=== PATIENT | male | born 1940 | race Caucasian/White ===

== ENCOUNTER → 2016-07-26 | Outpatient (REF) | payer MEDICARE, OTHER ==
[2016-07-26 12:52] LABS: ALBUMIN/GLOBULIN RATIO 1.29 (1.00-1.93); ALKALINE PHOSPHATASE 66 U/L (45-117); ALT/SGPT 29 U/L (12-78); ANION GAP 7 MEQ/L (8-16); AST/SGOT 21 U/L (15-37); BILIRUBIN,TOTAL 0.9 MG/DL (0.2-1.0); BLOOD UREA NITROGEN 24 MG/DL (7-18); CALCIUM LEVEL 9.5 MG/DL (8.8-10.2); CARBON DIOXIDE LEVEL 34 MEQ/L (21-32); CHLORIDE LEVEL 98 MEQ/L (98-107); CHOLESTEROL LEVEL 232 MG/DL (<200); CREATININE FOR GFR 0.94 MG/DL (0.70-1.30); GLOMERULAR FILTRATION RATE > 60.0 (>42); GLUCOSE, FASTING 103 MG/DL (83-110); POTASSIUM SERUM 3.4 MEQ/L (3.5-5.1); SODIUM LEVEL 139 MEQ/L (136-145); TOTAL PROTEIN 7.1 GM/DL (6.4-8.2); TRIGLYCERIDES LEVEL 196 MG/DL (<150)
== END ==
LOC: M SFHCADAM 07:41
PROVIDERS: ATTEND Physician Assistant
DX: I10 Essential (primary) hypertension (principal); E78.2 Mixed hyperlipidemia; E55.9 Vitamin D deficiency, unspecified

== ENCOUNTER 2016-10-09 20:34 | Emergency (ER) | payer MEDICARE, OTHER ==
[~2016-10-09] VITALS: Ht 172.7 cm; Wt 70.5 kg
[2016-10-09] MEDS ORDERED: ASPI81TA85 PO (20:59)
[2016-10-09] MEDS ORDERED: CHLO125TA (20:59)
[2016-10-09] MEDS ORDERED: ASPI325T24 PO (20:59)
[2016-10-09] MEDS ORDERED: FELO5TAB (20:59)
[2016-10-09] MEDS ORDERED: POTA20TA6 (20:59)
[2016-10-10] MEDS ORDERED: KEFL500C17 PO (00:17)
[2016-10-10 00:34] VITALS: BP 157/87
== END 2016-10-10 00:35 | disposition home or self-care (01) ==
LOC: M ED 20:34
DX: S01.81XA Laceration without foreign body of other part of head, initial encounter (principal); S51.811A Laceration without foreign body of right forearm, initial encounter; W01.0XXA Fall on same level from slipping, tripping and stumbling without subsequent striking against object, initial encounter; Y92.018 Other place in single-family (private) house as the place of occurrence of the external cause; Y99.9 Unspecified external cause status; Y93.9 Activity, unspecified; I10 Essential (primary) hypertension; Z79.82 Long term (current) use of aspirin; Z79.899 Other long term (current) drug therapy

== ENCOUNTER → 2018-02-07 | Outpatient (CLI) | payer MEDICARE, OTHER | LOC: M RAD 06:52 | DX: N28.89 Other specified disorders of kidney and ureter (principal) | CPT/HCPCS: 76775 ==

== ENCOUNTER → 2018-02-11 | Outpatient (CLI) | payer MEDICARE, OTHER ==
[~2018-02-11] MED LIST: ASPI325T25 PO; ASPI81TA85 PO; CHLO125TA; FELO5TAB; KEFL500C17 PO; POTA20TA6
[2018-02-11 18:01] LABS: BLOOD UREA NITROGEN 28 MG/DL (7-18); CALCIUM LEVEL 9.6 MG/DL (8.8-10.2); CARBON DIOXIDE LEVEL 30 MEQ/L (21-32); CHLORIDE LEVEL 99 MEQ/L (98-107); CREATININE FOR GFR 1.11 MG/DL (0.70-1.30); GLOMERULAR FILTRATION RATE > 60.0 (>42); GLUCOSE, FASTING 139 MG/DL (70-100); POTASSIUM SERUM 4.5 MEQ/L (3.5-5.1); SODIUM LEVEL 137 MEQ/L (136-145)
== END ==
LOC: M SMT 15:08
PROVIDERS: ATTEND Nurse Practitioner Family
DX: N28.89 Other specified disorders of kidney and ureter (principal)
CPT/HCPCS: 36415; 80048; G0463

== ENCOUNTER → 2018-02-14 | Outpatient (CLI) | payer MEDICARE, OTHER ==
[~2018-02-14] MED LIST changes: +ISOVUE-370 76% 100ML VIAL (Q9967) As Ordered ONE
--- NOTE | 2018-02-14 11:51 | REP ---
REASON FOR EXAM: Renal mass. There are no priors for comparison. CONTRAST: 100 mL Isovue 370. The lung bases are essentially clear with the exception of mild fibrotic and/or subsegmental atelectatic changes. There are no pleural or pericardial effusions. The precontrast-enhanced portion of the examination shows hepatic and splenic densities to be within normal limits. There is cholelithiasis. There is no nephrolithiasis. There is a mixed density mass arising from the superior pole of the right kidney. Contrast-enhanced portion of the examination shows a mixed enhancing 7.5 x 7 x 6.5 cm sized mass, which is arising from the interpolar region of the right kidney projecting superiorly. There are no enhancing hepatic abnormalities. The spleen, pancreas, adrenal glands, and left kidney are within normal limits. There is no retroperitoneal or perinephric adenopathy. There is no free fluid or free air in the abdomen. The bowel loops and their mesenteries are within normal limits. Bone window technique throughout the exam shows chronic spinal degenerative changes. IMPRESSION: There is an enhancing mass arising from the right kidney as described above consistent with neoplasm. Electronically Signed by Tashi Matt DO 02/14/2018 03:52 P
== END ==
LOC: M RAD 08:54
PROVIDERS: ATTEND Nurse Practitioner Family
DX: N28.89 Other specified disorders of kidney and ureter (principal)
CPT/HCPCS: 74170; Q9967

== ENCOUNTER → 2018-03-01 | Outpatient (CLI) | payer MEDICARE, OTHER ==
[~2018-03-01] MED LIST changes: +CHLO25TA PO; +FELO5TAB PO; -ISOVUE-370 76% 100ML VIAL (Q9967) As Ordered ONE; +POTA1TAB14 PO
--- NOTE | 2018-03-01 12:17 | REP ---
Chest two views HISTORY: Renal mass Comparison: None The lungs are clear. The heart is normal in size. The pulmonary vasculature is normal in appearance. The bony structure is intact. The patient is status post left shoulder arthroplasty. IMPRESSION: No acute disease. Electronically Signed by Brice Casey MD 03/01/2018 12:09 P
[2018-03-01 13:52] LABS: HEMOGLOBIN 17.7 g/dl (13.5-17.5); MEAN CORPUSCULAR HEMOGLOBIN 32.4 pg (27.0-33.0); MEAN CORPUSCULAR HGB CONC 35.4 g/dl (32.0-36.5); MEAN CORPUSCULAR VOLUME 91.4 fl (80.0-96.0); PLATELET COUNT, AUTOMATED 287 10^3/uL (150-450); RED BLOOD COUNT 5.47 10^6/uL (4.30-6.10); WHITE BLOOD COUNT 8.8 10^3/uL (4.0-10.0)
[2018-03-01 13:55] LABS: ALBUMIN 4.4 GM/DL (3.2-5.2); ALT/SGPT 34 U/L (12-78); BILIRUBIN,TOTAL 0.7 MG/DL (0.2-1.0); BLOOD UREA NITROGEN 20 MG/DL (7-18); CALCIUM LEVEL 10.2 MG/DL (8.8-10.2); CARBON DIOXIDE LEVEL 32 MEQ/L (21-32); CHLORIDE LEVEL 97 MEQ/L (98-107); CREATININE FOR GFR 1.14 MG/DL (0.70-1.30); GLOMERULAR FILTRATION RATE > 60.0 (>42); GLUCOSE, FASTING 104 MG/DL (70-100); POTASSIUM SERUM 4.3 MEQ/L (3.5-5.1); SODIUM LEVEL 136 MEQ/L (136-145); TOTAL PROTEIN 7.9 GM/DL (6.4-8.2)
[2018-03-01 14:02] LABS: INR 0.92; PARTIAL THROMBOPLASTIN TIME 31.9 SECONDS (25.4-37.6); PROTHROMBIN TIME 12.4 SECONDS (12.1-14.4)
== END ==
LOC: M SMT 10:41
PROVIDERS: ATTEND Urology
DX: Z01.818 Encounter for other preprocedural examination (principal); N28.89 Other specified disorders of kidney and ureter

== ENCOUNTER 2018-03-12 05:51 | Inpatient (IN) | payer MEDICARE, OTHER ==
[~2018-03-12] VITALS: Ht 172.7 cm; Wt 72.6 kg
[2018-03-12] VITALS (7 sets, daily range): BP systolic 136–148; BP diastolic 62–77
[2018-03-12] MEDS ORDERED: LIDOCAINE 1% MDV 20ML VIAL SQ PRN (06:00)
[2018-03-12] MEDS ORDERED: LR 1,000 ML IV ONE (07:00)
[2018-03-12] MEDS ORDERED: BUPIVACAINE HCL 0.25% 30 ML VIAL As Ordered ONE (07:12)
[2018-03-12] MEDS ORDERED: LIDOCAINE 1% SDV INJ 30 ML VIAL As Ordered ONE (07:12)
[2018-03-12] MEDS ORDERED: ONDANSETRON 4MG/2ML VIAL (J2405) IV PRN ×2 (07:30→13:30)
[2018-03-12] MEDS ORDERED: ACETAMINOPHEN TAB 650MG DOSE (2X325MG) PO PRN (07:30)
[2018-03-12] MEDS ORDERED: MORPHINE 4 MG/ML 1ML VIAL/SYRINGE (J2270) IV PRN (07:30)
[2018-03-12] MEDS ORDERED: LIDOCAINE 2% INJ 100 MG/5 ML SDV (FOR ANES.) As Ordered ONE (07:42)
[2018-03-12] MEDS ORDERED: ROCURONIUM BROMIDE 50 MG/5 ML VIAL As Ordered ONE ×3 (07:42→10:28)
[2018-03-12] MEDS ORDERED: dexameTHASONE 4 MG/ML 1ML VIAL (J1100) As Ordered ONE (07:42)
[2018-03-12] MEDS ORDERED: PROPOFOL 200 MG/20 ML VIAL As Ordered ONE (07:42)
[2018-03-12] MEDS ORDERED: MIDAZOLAM INJ 2 MG/2 ML VIAL (J2250) As Ordered ONE (07:42)
[2018-03-12] MEDS ORDERED: fentaNYL 250 MCG/5 ML INJECTION (J3010) As Ordered ONE (07:42)
[2018-03-12] MEDS ORDERED: ePHEDrine SULFATE 25 MG/5 ML(5MG/ML) SYRINGE As Ordered ONE (08:26)
[2018-03-12] MEDS ORDERED: GLYCOPYRROLATE INJ 0.2 MG/ML 2 ML VIAL As Ordered ONE (08:27)
[2018-03-12] MEDS: DOCUSATE SODIUM 100 MG CAP PO SCH ×2 (09:00→20:47)
[2018-03-12] MEDS ORDERED: ONDANSETRON 4MG/2ML VIAL (J2405) As Ordered ONE (09:23)
[2018-03-12] MEDS ORDERED: SUGAMMADEX SODIUM 500 MG/5 ML VIAL (BRIDION) As Ordered ONE (09:24)
[2018-03-12] MEDS ORDERED: LR 1,000 ML IV SCH (13:30)
[2018-03-12] MEDS ORDERED: PERCOCET 5MG/325MG TAB PO PRN (13:30)
[2018-03-12] MEDS ORDERED: MORPHINE 10 MG/ML 1ML VIAL (J2270) IV PRN (13:30)
[2018-03-12] MEDS ORDERED: METOCLOPRAMIDE INJ 10MG/2ML VIAL (J2765) IV PRN (13:30)
[2018-03-12] MEDS ORDERED: fentaNYL 100 MCG/2 ML INJECTION (J3010) As Ordered ONE (13:41)
[2018-03-12] MEDS: PERCOCET 5MG/325MG TAB PO PRN ×2 (13:46→20:47)
[2018-03-12] MEDS: fentaNYL 100 MCG/2 ML INJECTION (J3010) IV PRN ×4 (13:46→14:01)
--- NOTE | 2018-03-12 13:48 | ROOPDOC ---
[facility] Report Of Operation Report of Operation DATE OF PROCEDURE: 03/12/18 PREPROCEDURE DIAGNOSES: Renal Neoplasm. POSTPROCEDURE DIAGNOSES: Renal Neoplasm. PROCEDURE: Right Robotic-assisted Laparoscopic Radical Nephrectomy (adrenal- sparing). SURGEON: Vic Ulloa MD SOIL CHECKER: Maribel Bailey NP ANESTHESIA: General. OPERATIVE INDICATIONS: This is a 77 year old male who was recently found to have a 7.5cm right renal mass suspicious for malignancy. It was recommended that he undergo the above listed procedure for treatment. DESCRIPTION OF PROCEDURE: The patient was brought to the operating room and general anesthesia was induced. Prophylactic antibiotics were infused. A catheter was placed under sterile conditions. The patient was then placed in the left lateral decubitus position. All pressure points were appropriately padded and an axillary roll was placed. He was secured to the table with tape. The patient was then prepped and draped in the usual sterile fashion. The initial incision was for a 12 mm port in line with the 11th rib along the lateral rectus margin. A Veress needle was then utilized to achieve the pneumoperitoneum. A 12 mm port was then placed in through this incision and through which the camera was inserted. There were no injuries from Veress needle placement or initial trocar placement. The remaining ports were then placed under vision. The right hand robotic port was placed along the costal margin as well as a 5 mm law office assistant port which was placed midway between the camera port and the right hand robotic port along the lateral rectus margin. Another 5 mm port was placed just inferior to the xyphoid for access for a liver retractor. The 15 mm law office assistant port was placed just inferior to the camera port, also on the lateral rectus margin. The left hand robotic port was placed between the anterior-superior iliac spine and the umbilicus. The robot was then docked. We began by lifting up the liver with a laparoscopic locking Allis clamp. Next the right colon was dissected off of Gerota's fascia. We then Kocherized the duodenum. At this point the inferior vena cava (IVC) was identified. Next, a plane was made onto the lateral aspect of the IVC and this was carried cephalad until the renal vein was seen. Posterior to this, the main renal artery was seen. This was dissected, ligated with Weck clips, and then transected in between, leaving 2 clips on the stay side. Just cephalad to the main renal artery a smaller artery was seen. This was dissected and then ligated in similar fashion. It was then transected in between clips. Once all of the arteries were ligated and transected, the renal vein was dissected. It was then ligated and transected using laparoscopic vascular stapler. There did not appear to be any tumor involvement of the right adrenal gland. We therefore dissected the adrenal gland off the upper pole of the kidney and spared it. The kidney was then carefully dissected on all sides until it was only connected by the right ureter. The right ureter was then ligated with Weck clips and transected in between. There was a large vein coming off the posterior aspect of the tumor that drained into the gonadal vein. This was ligated with Weck clips and then transected in between the clips. At this point the kidney was completely free. The kidney was then placed in a large Endocatch bag for future retrieval. We then checked for hemostasis and it appeared excellent. Naseem hemostatic agent was then placed in the nephrectomy bed and along the inferior portion of the adrenal gland. Once satisfied with hemostasis, the robot was undocked. We then used a Ofe fascial closure device to place a #0 Vicryl free tie through the fascia of the 12 mm camera port site. We then connected the 15 mm law office assistant port and the left hand robotic port site incisions. We then dissected down to the fascia. The fascia was then extended using electrocautery. The muscle was bluntly spread. The specimen was then extracted through this incision. It was handed off the table to send for pathology. We then closed the extraction incision, starting first by reapproximating the muscle with figure of eight #0 Vicryl suture. The fascia was then closed using a running #0 Vicryl suture. At this point, the abdomen was reinsufflated and we looked back in with the camera and there was no bleeding underneath the extraction site. No abdominal contents were caught within the closure either. We then removed all the ports under direct vision and there was no bleeding from any of the port sites. At this point, the previously placed #0 Vicryl free tie was tied down and all the incisions were thoroughly irrigated. The subcutaneous tissue of the extraction incision was then reapproximated using interrupted #3-0 Vicryl suture. We then closed the skin of each site using a running #4-0 subcuticular Monocryl stitch. Local anesthetic was then applied to each incision and Dermabond was then applied and this marked the conclusion of the procedure. The patient was then taken out of the left lateral decubitus position, awakened from anesthesia and transported to the recovery room in stable condition. ESTIMATED BLOOD LOSS: Approximately 150 mL. COMPLICATIONS: None. SPECIMEN: Right Kidney. PLAN: The patient will be admitted to the hospital postoperatively and he will be discharged home once his renal function is stable and he is tolerating regular diet. VIC ULLOA MD Mar 12, 2018 13:48
[2018-03-12 13:57] LABS: HEMOGLOBIN 15.4 g/dl (13.5-17.5); MEAN CORPUSCULAR HEMOGLOBIN 32.4 pg (27.0-33.0); MEAN CORPUSCULAR HGB CONC 35.8 g/dl (32.0-36.5); MEAN CORPUSCULAR VOLUME 90.5 fl (80.0-96.0); PLATELET COUNT, AUTOMATED 208 10^3/uL (150-450); RED BLOOD COUNT 4.75 10^6/uL (4.30-6.10); WHITE BLOOD COUNT 11.4 10^3/uL (4.0-10.0)
[2018-03-12 14:21] LABS: CALCIUM LEVEL 8.3 MG/DL (8.8-10.2); CREATININE FOR GFR 1.41 MG/DL (0.70-1.30); GLOMERULAR FILTRATION RATE 51.8 (>42); POTASSIUM SERUM 3.4 MEQ/L (3.5-5.1)
[2018-03-12] MEDS: HEPARIN SOD (PORCINE) 5000 UNITS/ML VIAL SC SCH ×2 (15:13→21:07)
[2018-03-12] MEDS: ceFAZolin SOD 1 GM in D5W MINI-BAG PLUS 50 ML IV SCH ×2 (15:16→23:50)
[2018-03-12] MEDS: NS 1,000 ML IV SCH ×3 (15:16→23:50)
[2018-03-12] MEDS: SIMETHICONE 80 MG CHEW TAB PO PRN (18:53)
[2018-03-12] MEDS: ERYTHROMYCIN OPHTH OINT OD SCH (21:07)
[2018-03-13] MEDS: PERCOCET 5MG/325MG TAB PO PRN ×4 (01:21→21:01)
[2018-03-13 02:00] VITALS: BP 137/63
[2018-03-13] MEDS: SIMETHICONE 80 MG CHEW TAB PO PRN (04:33)
[2018-03-13 06:00] VITALS: BP 137/63
[2018-03-13 06:17] LABS: HEMATOCRIT 39.6 % (42.0-52.0); HEMOGLOBIN 13.9 g/dl (13.5-17.5); MEAN CORPUSCULAR HGB CONC 35.1 g/dl (32.0-36.5); PLATELET COUNT, AUTOMATED 204 10^3/uL (150-450); RED BLOOD COUNT 4.35 10^6/uL (4.30-6.10); WHITE BLOOD COUNT 11.2 10^3/uL (4.0-10.0)
[2018-03-13] MEDS: HEPARIN SOD (PORCINE) 5000 UNITS/ML VIAL SC SCH ×3 (06:23→20:59)
[2018-03-13 06:40] LABS: CALCIUM LEVEL 7.9 MG/DL (8.8-10.2); CREATININE FOR GFR 1.45 MG/DL (0.70-1.30); GLOMERULAR FILTRATION RATE 50.1 (>42)
[2018-03-13] MEDS: NS 1,000 ML IV SCH (07:24)
[2018-03-13] MEDS: amLODIPine 5 MG TAB PO SCH (07:48)
[2018-03-13] MEDS: ERYTHROMYCIN OPHTH OINT OD SCH ×2 (07:48→21:01)
[2018-03-13] MEDS: DOCUSATE SODIUM 100 MG CAP PO SCH ×2 (07:48→20:59)
[2018-03-13] MEDS ORDERED: POTASSIUM CHLORIDE 10 MEQ SR TABLET PO ONE (08:00)
--- NOTE | 2018-03-13 09:30 | IPNPDOC ---
Assessment/Plan Date Seen The patient was seen on 03/13/18. Patient Summary This is a 77 y/o M POD1 s/p right robotic-assisted laparoscopic radical nephrectomy (adrenal-sparing). He is doing well this morning. His Cr is stable at 1.45. UOP is very good. His potassium is low at 3. Hb is stable. Plan/VTE VTE Prophylaxis Ordered?: Yes VTE Exclusion Mechanical Proph: N/A:VTE Prophy Ordered VTE Exclusion Pharmacological: N/A:VTE Prophy Ordered Plan/Urinary Catheter Urinary Catheter: D/C Plan - d/c catheter - strict I/O - percocet prn pain - cont home meds - SCDs when in bed - SQH - incentive spirometry - replete K - ambulate - regular diet - likely discharge home tomorrow Subjective Review oF Systems Chief Complaint The patient is a 77-year-old male admitted with a reason for visit of Renal Mass. Events since Last Encounter No acute events o/n. Good pain control. No n/v. No flatus yet. Tolerating diet. Only complaint is mild gas pain. Ambulating well. No f/c/ns. Objective Physical Examination General Exam: Alert, Cooperative, No Acute Distress ABDOMEN EXAM: Other (soft; mild tenderness; incisions clean/dry/intact) Neuro Exam: Normal Speech Psych Exam: Mental status NL, Mood NL Other physical findings catheter draining clear urine Vital Signs/I&O Vital Signs Date Time Temp Pulse Resp B/P (MAP) Pulse Ox O2 Delivery O2 Flow Rate FiO2 03/13/18 07:49 16 03/13/18 07:48 67 156/74 03/13/18 06:00 97.0 96 03/13/18 01:52 Room Air 03/12/18 13:50 2 I&O- Last 24 Hours up to 6 AM 03/13/18 05:59 Intake Total 3990 ml Output Total 675 ml Balance 3315 ml Laboratory Data Labs 24H Laboratory Tests 2 03/12/18 13:32: Nucleated Red Blood Cells % (auto) 0.0, Anion Gap 12, Glomerular Filtration Rate 51.8, Blood Urea Nitrogen 24H, Creatinine 1.41H, Sodium Level 139, Potassium Level 3.4L, Chloride Level 101, Carbon Dioxide Level 26, Calcium Level 8.3L 03/13/18 05:50: Nucleated Red Blood Cells % (auto) 0.0, Anion Gap 10, Glomerular Filtration Rate 50.1, Blood Urea Nitrogen 24H, Creatinine 1.45H, Sodium Level 135L, Potassium Level 3.0L, Chloride Level 95L, Carbon Dioxide Level 30, Calcium Level 7.9L CBC/BMP Laboratory Tests 03/12/18 13:32 Red Blood Count 4.75, Mean Corpuscular Volume 90.5, Mean Corpuscular Hemoglobin 32.4, Mean Corpuscular Hemoglobin Concent 35.8, Red Cell Distribution Width 12.0, Calcium Level 8.3 L 03/13/18 05:50 Red Blood Count 4.35, Mean Corpuscular Volume 91.0, Mean Corpuscular Hemoglobin 32.0, Mean Corpuscular Hemoglobin Concent 35.1, Red Cell Distribution Width 12.1, Calcium Level 7.9 L VIC ULLOA MD Mar 13, 2018 09:30
[2018-03-13 10:00] VITALS: BP 140/76
[2018-03-13 14:00] VITALS: BP 130/69
[2018-03-13 18:00] VITALS: BP 113/67
[2018-03-13 22:00] VITALS: BP 152/70
[2018-03-14 02:00] VITALS: BP 150/78
[2018-03-14] MEDS: PERCOCET 5MG/325MG TAB PO PRN ×2 (03:53→09:08)
[2018-03-14 06:00] VITALS: BP 146/80
[2018-03-14 06:31] LABS: HEMOGLOBIN 14.5 g/dl (13.5-17.5); MEAN CORPUSCULAR HEMOGLOBIN 32.4 pg (27.0-33.0); MEAN CORPUSCULAR HGB CONC 35.4 g/dl (32.0-36.5); MEAN CORPUSCULAR VOLUME 91.5 fl (80.0-96.0); PLATELET COUNT, AUTOMATED 198 10^3/uL (150-450); RED BLOOD COUNT 4.48 10^6/uL (4.30-6.10); WHITE BLOOD COUNT 9.6 10^3/uL (4.0-10.0)
[2018-03-14] MEDS: HEPARIN SOD (PORCINE) 5000 UNITS/ML VIAL SC SCH (06:53)
[2018-03-14 07:02] LABS: CREATININE FOR GFR 1.4 MG/DL (0.70-1.30); GLOMERULAR FILTRATION RATE 52.2 (>42); POTASSIUM SERUM 3.5 MEQ/L (3.5-5.1)
[2018-03-14] MEDS: ERYTHROMYCIN OPHTH OINT OD SCH (09:00)
[2018-03-14 09:09] VITALS: BP 146/80
[2018-03-14] MEDS: amLODIPine 5 MG TAB PO SCH (09:09)
[2018-03-14] MEDS: DOCUSATE SODIUM 100 MG CAP PO SCH (09:09)
[2018-03-14] MEDS: SIMETHICONE 80 MG CHEW TAB PO PRN (09:13)
[2018-03-14] MEDS ORDERED: COLA100C5 PO (09:18)
[2018-03-14] MEDS ORDERED: OXYC1TAB23 PO (09:18)
[2018-03-14] MEDS ORDERED: ACE65ERTAB PO (09:18)
[2018-03-14] MEDS ORDERED: MYLICON PO (09:18)
--- NOTE | 2018-03-14 09:20 | IPNPDOC ---
Assessment/Plan Date Seen The patient was seen on 03/14/18. Patient Summary This is a 77 y/o M POD2 s/p right robotic radical nephrectomy. He is doing well. His Cr is stable at 1.4. UOP has been very good. He is ambulating well. Plan/VTE VTE Prophylaxis Ordered?: Yes VTE Exclusion Mechanical Proph: N/A:VTE Prophy Ordered VTE Exclusion Pharmacological: N/A:VTE Prophy Ordered Plan - percocet prn pain - strict I/Os - SCDs when in bed - SQH - incentive spirometry - regular diet - discharge home today Subjective Review oF Systems Chief Complaint The patient is a 77-year-old male admitted with a reason for visit of Renal Mass. Events since Last Encounter No acute events o/n. Good pain control. No n/v. No flatus yet. Tolerating a regular diet. No f/c/ns. Objective Physical Examination General Exam: Alert, Cooperative, No Acute Distress ABDOMEN EXAM: Other (soft; nontender; incisions clean/dry/intact) Neuro Exam: Normal Speech Psych Exam: Mental status NL, Mood NL Vital Signs/I&O Vital Signs Date Time Temp Pulse Resp B/P (MAP) Pulse Ox O2 Delivery O2 Flow Rate FiO2 03/14/18 09:09 67 146/80 03/14/18 09:08 18 03/14/18 06:00 98.0 92 Room Air 03/12/18 13:50 2 I&O- Last 24 Hours up to 6 AM 03/14/18 06:00 Intake Total 1280 ml Output Total 2850 ml Balance -1570 ml Laboratory Data Labs 24H Laboratory Tests 2 03/14/18 05:48: Nucleated Red Blood Cells % (auto) 0.0, Anion Gap 6L, Glomerular Filtration Rate 52.2, Blood Urea Nitrogen 19H, Creatinine 1.40H, Sodium Level 137, Potassium Level 3.5, Chloride Level 99, Carbon Dioxide Level 32, Calcium Level 9.0 CBC/BMP Laboratory Tests 03/14/18 05:48 Red Blood Count 4.48, Mean Corpuscular Volume 91.5, Mean Corpuscular Hemoglobin 32.4, Mean Corpuscular Hemoglobin Concent 35.4, Red Cell Distribution Width 12.2, Calcium Level 9.0 VIC ULLOA MD Mar 14, 2018 09:20
== END 2018-03-14 10:40 | disposition home or self-care (01) | DRG 658 ==
LOC: M OR 05:51 → M MSPAV 14:05
PROVIDERS: ADMIT Urology; ATTEND Urology
PROC: 8E0W4CZ Robotic Assisted Procedure of Trunk Region, Percutaneous Endoscopic Approach (ICD-10-PCS; 2018-03-12)
PROC: 0TT04ZZ Resection of Right Kidney, Percutaneous Endoscopic Approach (ICD-10-PCS; principal; 2018-03-12 07:30)
DX: C65.1 Malignant neoplasm of right renal pelvis (principal); I10 Essential (primary) hypertension; M50.30 Other cervical disc degeneration, unspecified cervical region; M16.0 Bilateral primary osteoarthritis of hip; E55.9 Vitamin D deficiency, unspecified; E78.5 Hyperlipidemia, unspecified; Z96.612 Presence of left artificial shoulder joint; Z88.8 Allergy status to other drugs, medicaments and biological substances; Z79.82 Long term (current) use of aspirin; Z79.899 Other long term (current) drug therapy

== ENCOUNTER → 2018-03-21 | Outpatient (REF) | payer MEDICARE, OTHER ==
[~2018-03-21] MED LIST changes: +ACE65ERTAB PO; +COLA100C5 PO; +MYLICON PO; +OXYC1TAB23 PO
[2018-03-21 14:17] LABS: CALCIUM LEVEL 8.9 MG/DL (8.8-10.2); CHOLESTEROL RISK RATIO 5.848 (<5); CREATININE FOR GFR 1.39 MG/DL (0.70-1.30); GLOMERULAR FILTRATION RATE 52.6 (>42); POTASSIUM SERUM 4.7 MEQ/L (3.5-5.1)
== END ==
LOC: M SFHCADAM 08:43
PROVIDERS: ATTEND Physician Assistant
DX: E78.2 Mixed hyperlipidemia (principal); I10 Essential (primary) hypertension

== ENCOUNTER → 2018-04-22 | Outpatient (CLI) | payer MEDICARE, OTHER ==
[2018-04-22 13:08] LABS: HEMATOCRIT 45.3 % (42.0-52.0); HEMOGLOBIN 15.4 g/dl (13.5-17.5); MEAN CORPUSCULAR HEMOGLOBIN 31.8 pg (27.0-33.0); MEAN CORPUSCULAR VOLUME 93.6 fl (80.0-96.0); PLATELET COUNT, AUTOMATED 272 10^3/uL (150-450); RED BLOOD COUNT 4.84 10^6/uL (4.30-6.10); WHITE BLOOD COUNT 7.1 10^3/uL (4.0-10.0)
[2018-04-22 13:24] LABS: ALBUMIN 4.1 GM/DL (3.2-5.2); BILIRUBIN,TOTAL 0.6 MG/DL (0.2-1.0); CALCIUM LEVEL 9.3 MG/DL (8.8-10.2); CREATININE FOR GFR 1.34 MG/DL (0.70-1.30); GLOMERULAR FILTRATION RATE 54.9 (>42); POTASSIUM SERUM 5.8 MEQ/L (3.5-5.1); TOTAL PROTEIN 7.2 GM/DL (6.4-8.2)
[2018-04-22 13:54] LABS: MALB URINE SIEMENS 20.8 MG/L; MAU/CREAT RATIO 37.1 MCG/MG (0.0-30.0)
== END ==
LOC: M SMT 09:07
PROVIDERS: ATTEND Physician Assistant
DX: C64.1 Malignant neoplasm of right kidney, except renal pelvis (principal); I10 Essential (primary) hypertension
CPT/HCPCS: 36415; 80053; 82043; 85027; G0463

== ENCOUNTER → 2018-07-04 | Outpatient (REF) | payer MEDICARE, OTHER ==
[~2018-07-04] MED LIST changes: +ASPI-255 PO; -ASPI325T25 PO
[2018-07-04 19:55] LABS: ALBUMIN 4.3 GM/DL (3.2-5.2); BILIRUBIN,TOTAL 0.5 MG/DL (0.2-1.0); CALCIUM LEVEL 9.2 MG/DL (8.8-10.2); CREATININE FOR GFR 1.41 MG/DL (0.70-1.30); GLOMERULAR FILTRATION RATE 51.6 (>42); POTASSIUM SERUM 5.2 MEQ/L (3.5-5.1); TOTAL PROTEIN 7.2 GM/DL (6.4-8.2)
[2018-07-04 20:00] LABS: HEMATOCRIT 45.4 % (42.0-52.0); HEMOGLOBIN 15.2 g/dl (13.5-17.5); MEAN CORPUSCULAR HEMOGLOBIN 31.4 pg (27.0-33.0); MEAN CORPUSCULAR HGB CONC 33.5 g/dl (32.0-36.5); MEAN CORPUSCULAR VOLUME 93.8 fl (80.0-96.0); PLATELET COUNT, AUTOMATED 260 10^3/uL (150-450); RED BLOOD COUNT 4.84 10^6/uL (4.30-6.10); WHITE BLOOD COUNT 9.9 10^3/uL (4.0-10.0)
== END ==
LOC: M SFHCADAM 16:34
PROVIDERS: ATTEND Physician Assistant
DX: N18.3 Chronic kidney disease, stage 3 (moderate) (principal)
CPT/HCPCS: 80053; 85027; G0463

== ENCOUNTER → 2018-08-01 | Outpatient (REF) | payer MEDICARE, OTHER ==
[~2018-08-01] MED LIST changes: +ULTR50TA8 PO
[2018-08-01 12:42] LABS: ALBUMIN 4.3 GM/DL (3.2-5.2); ALT/SGPT 32 U/L (12-78); BILIRUBIN,TOTAL 0.7 MG/DL (0.2-1.0); BLOOD UREA NITROGEN 22 MG/DL (7-18); CALCIUM LEVEL 9.6 MG/DL (8.8-10.2); CARBON DIOXIDE LEVEL 30 MEQ/L (21-32); CHLORIDE LEVEL 104 MEQ/L (98-107); CREATININE FOR GFR 1.21 MG/DL (0.70-1.30); GLOMERULAR FILTRATION RATE > 60.0 (>42); GLUCOSE, FASTING 101 MG/DL (70-100); POTASSIUM SERUM 5.2 MEQ/L (3.5-5.1); SODIUM LEVEL 138 MEQ/L (136-145); TOTAL PROTEIN 7.5 GM/DL (6.4-8.2)
[2018-08-01 12:46] LABS: HEMATOCRIT 48.8 % (42.0-52.0); HEMOGLOBIN 16.4 g/dl (13.5-17.5); MEAN CORPUSCULAR HEMOGLOBIN 31.4 pg (27.0-33.0); MEAN CORPUSCULAR HGB CONC 33.6 g/dl (32.0-36.5); MEAN CORPUSCULAR VOLUME 93.5 fl (80.0-96.0); PLATELET COUNT, AUTOMATED 251 10^3/uL (150-450); RED BLOOD COUNT 5.22 10^6/uL (4.30-6.10)
== END ==
LOC: M SFHCADAM 07:44
PROVIDERS: ATTEND Physician Assistant
DX: I12.9 Hypertensive chronic kidney disease with stage 1 through stage 4 chronic kidney disease, or unspecified chronic kidney disease (principal); N18.3 Chronic kidney disease, stage 3 (moderate)
CPT/HCPCS: 80053; 85027; G0463

== ENCOUNTER 2018-08-18 08:25 | Emergency (ER) | payer MEDICARE, OTHER ==
[~2018-08-18] VITALS: Ht 172.7 cm; Wt 71.8 kg
[~2018-08-18 08:25] MED LIST changes: -ULTR50TA8 PO
[2018-08-18] MEDS ORDERED: ADACEL/BOOSTRIX VACCINE (DIPHTH/PERTUSS/ACELL/TETANUS)0.5ML SYR (90715) IM ONE (09:15)
[2018-08-18] MEDS ORDERED: ULTR50TA8 PO (09:30)
--- NOTE | 2018-08-18 09:37 | REP ---
Right shoulder four views: There is comminuted clavicle fracture. There is acromioclavicular osteoarthritis. There is a degenerative ligamentous calcification along the acromioclavicular superior margin. 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 Mineralization is normal. Electronically Signed by Rajiv Hutchins MD 08/18/2018 09:29 A
[2018-08-18 09:38] VITALS: BP 132/76
== END 2018-08-18 09:41 | disposition home or self-care (01) ==
LOC: M ED 08:25
DX: S42.001A Fracture of unspecified part of right clavicle, initial encounter for closed fracture (principal); T14.8XXA Other injury of unspecified body region, initial encounter; V19.9XXA Pedal cyclist (driver) (passenger) injured in unspecified traffic accident, initial encounter; Y92.410 Unspecified street and highway as the place of occurrence of the external cause; Y93.55 Activity, bike riding; Y99.9 Unspecified external cause status; M19.011 Primary osteoarthritis, right shoulder; M24.211 Disorder of ligament, right shoulder; Z79.899 Other long term (current) drug therapy

== ENCOUNTER → 2018-08-26 | Outpatient (CLI) | payer MEDICARE, OTHER ==
[~2018-08-26] MED LIST changes: +ULTR50TA8 PO
--- NOTE | 2018-08-26 11:03 | REP ---
Clinical: Recent trauma with continued pain. Technique: Frontal view of the chest with multiple views of the right hemithorax. Findings: Moderate right hydropneumothorax. Mid clavicular shaft fracture. Right lateral fourth and fifth rib fractures. Mediastinum and cardiac silhouette are normal. Left hemithorax appears clear. Impression: Right hydropneumothorax along with clavicular shaft fracture and right lateral rib fractures identified. Electronically Signed by Reed Flores MD 08/26/2018 10:55 A
--- NOTE | 2018-08-26 11:04 | REP ---
Clinical: Contusion. Technique: AP and lateral views of the right tibia / fibula. Findings: No acute fracture or dislocation. No subcutaneous emphysema or radiodense foreign body. Evidence for peripheral vascular disease noted. Impression: No acute fracture dislocation. Electronically Signed by Reed Flores MD 08/26/2018 10:56 A
== END ==
LOC: M WUC 10:23
PROVIDERS: ATTEND Physician Assistant
DX: S80.11XA Contusion of right lower leg, initial encounter (principal); S22.41XA Multiple fractures of ribs, right side, initial encounter for closed fracture; S42.021A Displaced fracture of shaft of right clavicle, initial encounter for closed fracture; S27.309A Unspecified injury of lung, unspecified, initial encounter; X58.XXXA Exposure to other specified factors, initial encounter; Y92.9 Unspecified place or not applicable

== ENCOUNTER → 2018-09-02 | Outpatient (CLI) | payer MEDICARE, OTHER ==
--- NOTE | 2018-09-02 16:11 | REP ---
Chest x-ray: Two views. History: Traumatic pneumothorax pleural effusion. Comparison study: August 26, 2018. Findings: The previously noted post-traumatic right-sided hydropneumothorax is again seen. There is less pleural air in the right apical pneumothorax today with only a tiny sliver of remaining. There is very slight blunting of the right lateral pleural angle. Multiple right rib fractures and right midshaft clavicle fracture again noted. Left lung remains clear. No new infiltrate. Impression: Decreasing right-sided post-traumatic hydropneumothorax. Electronically Signed by Rahat Mota MD 09/02/2018 04:02 P
== END ==
LOC: M ADAMS 10:50
PROVIDERS: ATTEND Physician Assistant
DX: S27.0XXA Traumatic pneumothorax, initial encounter (principal); J90 Pleural effusion, not elsewhere classified

== ENCOUNTER → 2018-10-09 | Outpatient (CLI) | payer MEDICARE, OTHER ==
--- NOTE | 2018-10-09 12:04 | REP ---
CHEST X-RAY: Two views. HISTORY: Clear cell carcinoma the right kidney. History of nephrectomy. Comparison chest x-ray September 02, 2018 and 06/26/2018. FINDINGS: The recently noted right lateral rib and right clavicle fractures again seen. A prosthetic left humeral head is noted in place at the shoulder. The lungs are symmetrically aerated and clear. Pleural angles are sharp. There is no evidence of pneumothorax. No infiltrate is seen. Cardiomediastinal silhouette is unremarkable. The thoracic aorta is calcific and somewhat tortuous. IMPRESSION: No active cardiopulmonary disease. Healing right rib fracture. Electronically Signed by Rahat Mota MD 10/09/2018 08:59 P
== END ==
LOC: M ADAMS 08:26
PROVIDERS: ATTEND Urology
DX: C64.1 Malignant neoplasm of right kidney, except renal pelvis (principal); Z90.5 Acquired absence of kidney

== ENCOUNTER → 2018-10-09 | Outpatient (REF) | payer MEDICARE, OTHER ==
[2018-10-09 16:07] LABS: BLOOD UREA NITROGEN 19 MG/DL (7-18); CALCIUM LEVEL 9.9 MG/DL (8.8-10.2); CARBON DIOXIDE LEVEL 25 MEQ/L (21-32); CHLORIDE LEVEL 107 MEQ/L (98-107); CREATININE FOR GFR 1.14 MG/DL (0.70-1.30); GLOMERULAR FILTRATION RATE > 60.0 (>42); GLUCOSE, FASTING 97 MG/DL (70-100); SODIUM LEVEL 141 MEQ/L (136-145)
== END ==
LOC: M LABDRWAD 12:10
PROVIDERS: ATTEND Urology
DX: C64.1 Malignant neoplasm of right kidney, except renal pelvis (principal); Z90.5 Acquired absence of kidney

== ENCOUNTER → 2018-10-17 | Outpatient (CLI) | payer MEDICARE, OTHER ==
[~2018-10-17] MED LIST changes: +ISOVUE-370 76% 100ML VIAL (Q9967) As Ordered ONE
--- NOTE | 2018-10-17 13:52 | REP ---
REASON: Clear cell carcinoma of the right kidney, status post nephrectomy. COMPARISON: 02/14/2018 CONTRAST: 100 mL Isovue-370. The lung bases are essentially clear and unchanged. Mild fibrotic changes are present, status quo. The precontrast enhanced portion of the examination shows hepatic and splenic densities to be within normal limits. There is cholelithiasis, status quo. There are no left nephroliths. Contrast-enhanced portion of the examination shows no evidence of enhancing hepatic lesion. The gallbladder wall is not abnormally enhancing. The spleen, pancreas, adrenal glands, and left kidney are again seen to be within normal limits. Bowel loops occupy the right renal fossa due to nephrectomy. The abdominal aorta and para-aortic regions are within normal limits. The bowel loops and their mesenteries are within normal limits. There is no free fluid or free air. There is no evidence of an intra-abdominal or retroperitoneal mass or adenopathy. Bone window technique throughout the exam shows chronic spinal and sacroiliac joint degenerative changes. There is a healing right 8th rib fracture. IMPRESSION: No evidence of acute intra-abdominal or retroperitoneal disease. There is cholelithiasis, status quo. There is a healing right 8th rib fracture. Electronically Signed by Tashi Matt DO 10/17/2018 03:05 P
== END ==
LOC: M RAD 12:34
PROVIDERS: ATTEND Urology
DX: K80.80 Other cholelithiasis without obstruction (principal); C64.1 Malignant neoplasm of right kidney, except renal pelvis; Z90.5 Acquired absence of kidney
CPT/HCPCS: 74170; Q9967

== ENCOUNTER → 2019-04-21 | Outpatient (REF) | payer MEDICARE, OTHER ==
[~2019-04-21] MED LIST changes: -FELO5TAB; -FELO5TAB PO; +FELO5TAB26; +FELO5TAB26 PO; -ISOVUE-370 76% 100ML VIAL (Q9967) As Ordered ONE
[2019-04-21 12:59] LABS: HEMATOCRIT 50.3 % (42.0-52.0); HEMOGLOBIN 16.8 g/dl (13.5-17.5); MEAN CORPUSCULAR HEMOGLOBIN 32.2 pg (27.0-33.0); MEAN CORPUSCULAR HGB CONC 33.4 g/dl (32.0-36.5); MEAN CORPUSCULAR VOLUME 96.5 fl (80.0-96.0); PLATELET COUNT, AUTOMATED 256 10^3/uL (150-450); RED BLOOD COUNT 5.21 10^6/uL (4.30-6.10); WHITE BLOOD COUNT 7.3 10^3/uL (4.0-10.0)
[2019-04-21 13:07] LABS: ALBUMIN 4.4 GM/DL (3.2-5.2); ALT/SGPT 25 U/L (12-78); BILIRUBIN,TOTAL 0.8 MG/DL (0.2-1.0); BLOOD UREA NITROGEN 21 MG/DL (7-18); CALCIUM LEVEL 9.9 MG/DL (8.8-10.2); CARBON DIOXIDE LEVEL 30 MEQ/L (21-32); CHLORIDE LEVEL 105 MEQ/L (98-107); CHOLESTEROL LEVEL 218 MG/DL (<200); CHOLESTEROL RISK RATIO 6.055 (<5); CREATININE FOR GFR 1.51 MG/DL (0.70-1.30); FREE T4 1.09 NG/DL (0.76-1.46); GLOMERULAR FILTRATION RATE 47.7 (>42); GLUCOSE, FASTING 100 MG/DL (70-100); HDL CHOLESTEROL 36 MG/DL (>40); LDL CHOLESTEROL 115 MG/DL (<100); NON-HDL-C 182 MG/DL; SODIUM LEVEL 140 MEQ/L (136-145); TOTAL PROTEIN 7.6 GM/DL (6.4-8.2); TRIGLYCERIDES LEVEL 334 MG/DL (<150)
[2019-04-21 13:10] LABS: FOLATE > 24.0 NG/ML; VITAMIN B12 LEVEL 1276 PG/ML
[2019-04-21 14:02] LABS: MALB URINE SIEMENS 35.3 MG/L; MAU/CREAT RATIO 28.2 MCG/MG (0.0-30.0)
== END ==
LOC: M SFHCADAM 08:08
PROVIDERS: ATTEND Physician Assistant
DX: E78.2 Mixed hyperlipidemia (principal); N18.3 Chronic kidney disease, stage 3 (moderate); I12.9 Hypertensive chronic kidney disease with stage 1 through stage 4 chronic kidney disease, or unspecified chronic kidney disease

== ENCOUNTER → 2019-10-08 | Outpatient (REF) | payer MEDICARE, OTHER ==
[~2019-10-08] MED LIST changes: -ASPI81TA85 PO; +ASPI81TA86 PO
[2019-11-21 21:25] LABS: BLOOD UREA NITROGEN 23 MG/DL (7-18); CALCIUM LEVEL 9.4 MG/DL (8.8-10.2); CARBON DIOXIDE LEVEL 26 MEQ/L (21-32); CHLORIDE LEVEL 107 MEQ/L (98-107); GLOMERULAR FILTRATION RATE > 60.0 (>35); GLUCOSE, FASTING 90 MG/DL (70-100); POTASSIUM SERUM 5.1 MEQ/L (3.5-5.1); SODIUM LEVEL 139 MEQ/L (136-145)
== END ==
LOC: M LABDRWAD 14:27
PROVIDERS: ATTEND Urology
DX: C64.1 Malignant neoplasm of right kidney, except renal pelvis (principal); Z90.5 Acquired absence of kidney

== ENCOUNTER → 2019-10-10 | Outpatient (CLI) | payer MEDICARE, OTHER ==
[~2019-10-10] MED LIST changes: +ISOVUE-370 76% 100ML VIAL As Ordered ONE
--- NOTE | 2019-11-18 07:07 | REP ---
CT OF THE ABDOMEN WITH IV BUT WITHOUT ORAL CONTRAST: HISTORY: Clear cell carcinoma right kidney. History of nephrectomy unilateral. COMPARISON: CT study from 10/17/18 and 02/16/18. CONTRAST DOSE: 100 ml of intravenous Isovue 370. FINDINGS: Preliminary digital tank terminal gauger radiograph is unremarkable. The liver and spleen remain normal in size, homogeneous in texture. Normal adrenal glands are noted bilaterally, unchanged. There is calcific gallstone density in the neck of the gallbladder. This is unchanged. Patient is status post right nephrectomy. No evidence of mass or adenopathy or abnormal fluid collection in the nephrectomy bed. A normal appendix is seen in the nephrectomy bed on today's CT study. No left renal mass is observed. No hydronephrosis, cyst or calculus is appreciated. No vena caval or portal venous abnormality is observed. There is some vascular calcification in a normal caliber aorta. No retroperitoneal mass or adenopathy is seen. The visualized small and large bowel loops are unremarkable. Bone window settings demonstrate degenerative spondylosis, as before. No bony destructive lesion. The lung bases are clear on axial CT images. IMPRESSION: Status post right nephrectomy. No evidence of recurrent mass, adenopathy or contralateral disease. MTDD
== END ==
LOC: M RAD 13:14
PROVIDERS: ATTEND Urology
DX: C64.1 Malignant neoplasm of right kidney, except renal pelvis (principal); Z90.5 Acquired absence of kidney
CPT/HCPCS: 74160; Q9967

== ENCOUNTER → 2019-12-08 | Outpatient (REF) | payer MEDICARE, OTHER ==
[~2019-12-08] MED LIST changes: -ISOVUE-370 76% 100ML VIAL As Ordered ONE
[2019-12-08 13:05] LABS: BLOOD UREA NITROGEN 28 MG/DL (7-18); CALCIUM LEVEL 9.5 MG/DL (8.8-10.2); CARBON DIOXIDE LEVEL 29 MEQ/L (21-32); CHLORIDE LEVEL 106 MEQ/L (98-107); CREATININE FOR GFR 1.17 MG/DL (0.70-1.30); GLOMERULAR FILTRATION RATE > 60.0 (>35); GLUCOSE, FASTING 95 MG/DL (70-100); SODIUM LEVEL 139 MEQ/L (136-145)
== END ==
LOC: M SFHCADAM 08:08
PROVIDERS: ATTEND Physician Assistant
DX: C64.1 Malignant neoplasm of right kidney, except renal pelvis (principal); Z90.5 Acquired absence of kidney

== ENCOUNTER → 2020-10-06 | Outpatient (REF) | payer MEDICARE, OTHER ==
[2020-10-06 13:46] LABS: CREATININE FOR GFR 1.25 MG/DL (0.70-1.30); POTASSIUM SERUM 4.8 MEQ/L (3.5-5.1)
== END ==
LOC: M LABDRWAD 12:33
PROVIDERS: ATTEND Urology
DX: C64.1 Malignant neoplasm of right kidney, except renal pelvis (principal); Z90.5 Acquired absence of kidney

== ENCOUNTER → 2020-10-13 | Outpatient (CLI) | payer MEDICARE, OTHER ==
[~2020-10-13] MED LIST changes: +ISOVUE-370 76% 100ML VIAL As Ordered ONE
--- NOTE | 2020-10-13 16:41 | REP ---
INDICATION: CLEAR CELL CA OF KIDNEY. COMPARISON: Multiple the latest 10/10/2019 TECHNIQUE: Standard helical technique after the intravenous administration of 100 cc Isovue 370 FINDINGS: There is no significant change in appearance of the lung bases. The patient is status post right nephrectomy. Bowel loops occupy the right renal fossa. The liver, spleen, pancreas, adrenal glands, and left kidney are unchanged and again seen to be within normal limits. Note is again made of cholelithiasis. The abdominal aorta and para-aortic regions are within normal limits. No adenopathy has developed. There is no significant change in appearance of the bowel loops or the mesenteries. There is no free fluid or free air. Bone window technique throughout the examination shows advanced chronic spinal degenerative changes particularly at L4-5 status quo. 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 There is no evidence of acute disease. <Electronically signed by Tsahi Matt > 10/13/20 [id number]
== END ==
LOC: M RAD 15:36
PROVIDERS: ATTEND Urology
DX: C64.1 Malignant neoplasm of right kidney, except renal pelvis (principal); Z90.5 Acquired absence of kidney
CPT/HCPCS: 74160; Q9967

== ENCOUNTER → 2020-10-26 | Outpatient (REF) | payer MEDICARE, OTHER ==
[~2020-10-26] MED LIST changes: -ISOVUE-370 76% 100ML VIAL As Ordered ONE
[2020-10-26 13:53] LABS: HEMATOCRIT 47.4 % (42.0-52.0); HEMOGLOBIN 15.8 g/dl (13.5-17.5); MEAN CORPUSCULAR HEMOGLOBIN 32.2 pg (27.0-33.0); MEAN CORPUSCULAR HGB CONC 33.3 g/dl (32.0-36.5); MEAN CORPUSCULAR VOLUME 96.7 fl (80.0-96.0); PLATELET COUNT, AUTOMATED 226 10^3/uL (150-450); WHITE BLOOD COUNT 6.3 10^3/uL (4.0-10.0)
[2020-10-26 14:28] LABS: ALBUMIN 3.9 GM/DL (3.2-5.2); ALT/SGPT 30 U/L (12-78); BILIRUBIN,TOTAL 0.7 MG/DL (0.2-1.0); BLOOD UREA NITROGEN 22 MG/DL (7-18); CALCIUM LEVEL 9.2 MG/DL (8.8-10.2); CARBON DIOXIDE LEVEL 27 MEQ/L (21-32); CHLORIDE LEVEL 107 MEQ/L (98-107); CHOLESTEROL LEVEL 153 MG/DL (<200); CHOLESTEROL RISK RATIO 2.732 (<5); CREATININE FOR GFR 1.16 MG/DL (0.70-1.30); CREATININE, URINE 80.4 MG/DL; GLOMERULAR FILTRATION RATE > 60.0 (>35); GLUCOSE, FASTING 100 MG/DL (70-100); HDL CHOLESTEROL 56 MG/DL (>40); LDL CHOLESTEROL 74 MG/DL (<100); MALB URINE SIEMENS 21.1 MG/L; MAU/CREAT RATIO 26.2 MCG/MG (0.0-30.0); NON-HDL-C 97 MG/DL; POTASSIUM SERUM 4.7 MEQ/L (3.5-5.1); SODIUM LEVEL 139 MEQ/L (136-145); TOTAL 25(OH) VITAMIN D 36.7 NG/ML (30.0-100.0); TOTAL PROTEIN 6.8 GM/DL (6.4-8.2); TRIGLYCERIDES LEVEL 116 MG/DL (<150)
== END ==
LOC: M SFHCADAM 08:09
PROVIDERS: ATTEND Physician Assistant
DX: I12.9 Hypertensive chronic kidney disease with stage 1 through stage 4 chronic kidney disease, or unspecified chronic kidney disease (principal); E78.2 Mixed hyperlipidemia; N18.30 Chronic kidney disease, stage 3 unspecified

== ENCOUNTER → 2020-11-02 | Outpatient (CLI) | payer MEDICARE, OTHER ==
--- NOTE | 2020-11-02 14:11 | REP ---
INDICATION: PAIN. COMPARISON: None. TECHNIQUE: Four views of the right hand are provided. FINDINGS: Four views of the right hand demonstrate overall normal mineralization. No fracture or subluxation is seen. No opaque foreign body noted. There is joint space narrowing and sclerosis at the radiocarpal articulation and at the 1st carpometacarpal articulation. There is osteoarthritic change at the PIP joints of the 4 fingers and the IP joint of the thumb. There are erosive osteoarthritic changes at the D IP joint of the index and long finger and to a lesser extent the small finger. There is soft tissue swelling associated with spur formation at the D IP joints of the index and long finger. IMPRESSION: Erosive osteoarthritic changes as noted above. <Electronically signed by Aric Mota > 11/02/20 [id number]
== END ==
LOC: M WUC 12:16
PROVIDERS: ATTEND Physician Assistant
DX: M19.041 Primary osteoarthritis, right hand (principal); M79.641 Pain in right hand

== ENCOUNTER → 2020-11-25 | Outpatient (CLI) | payer MEDICARE, OTHER | LOC: M CARPUL 10:26 | PROVIDERS: ATTEND Physician Assistant | DX: R01.1 Cardiac murmur, unspecified (principal) ==

== ENCOUNTER → 2021-05-09 | Outpatient (REF) | payer MEDICARE, OTHER ==
[~2021-05-09] MED LIST changes: +POTA-151; -POTA20TA6
[2021-05-09 13:02] LABS: CALCIUM LEVEL 8.8 MG/DL (8.8-10.2); CREATININE FOR GFR 1.24 MG/DL (0.70-1.30); GLOMERULAR FILTRATION RATE 59.6 (>35); POTASSIUM SERUM 4.3 MEQ/L (3.5-5.1)
== END ==
LOC: M SFHCADAM 08:00
PROVIDERS: ATTEND Physician Assistant
DX: C64.1 Malignant neoplasm of right kidney, except renal pelvis (principal); Z90.5 Acquired absence of kidney

== ENCOUNTER → 2021-06-27 | Outpatient (CLI) | payer MEDICARE, OTHER ==
[~2021-06-27] MED LIST changes: +BUPIVACAINE HCL 0.5% 10ML VIAL As Ordered ONE; +ISOVUE-300 61% 50ML VIAL As Ordered ONE; +LIDOCAINE 1% MDV 20ML VIAL As Ordered ONE; +methylPREDNISolone 80MG/ML SUSP 1ML VIAL (J1040) As Ordered ONE
== END ==
LOC: M RADPRO 14:13
PROVIDERS: ATTEND Orthopaedic Surgery
DX: M19.011 Primary osteoarthritis, right shoulder (principal)
CPT/HCPCS: 20610; 77002; J1040; Q9967

== ENCOUNTER → 2021-10-12 | Outpatient (CLI) | payer MEDICARE, OTHER ==
[~2021-10-12] MED LIST changes: -BUPIVACAINE HCL 0.5% 10ML VIAL As Ordered ONE; -ISOVUE-300 61% 50ML VIAL As Ordered ONE; -LIDOCAINE 1% MDV 20ML VIAL As Ordered ONE; -methylPREDNISolone 80MG/ML SUSP 1ML VIAL (J1040) As Ordered ONE
== END ==
LOC: M ADAMS 09:43
PROVIDERS: ATTEND Urology
DX: C64.1 Malignant neoplasm of right kidney, except renal pelvis (principal); Z90.5 Acquired absence of kidney; E07.9 Disorder of thyroid, unspecified; E78.00 Pure hypercholesterolemia, unspecified

== ENCOUNTER → 2021-10-12 | Outpatient (REF) | payer MEDICARE, OTHER ==
[2021-10-12 15:21] LABS: BASO # 0.1 10^3/uL (0.0-0.2); BASO % 0.8 % (0.0-1.0); EOS # 0.2 10^3/uL (0.0-0.5); EOS % 3.2 % (0.0-3.0); HEMATOCRIT 46.5 % (42.0-52.0); HEMOGLOBIN 15.5 g/dl (13.5-17.5); LYMPH # 2.1 10^3/uL (1.5-5.0); LYMPH % 31.5 % (24.0-44.0); MEAN CORPUSCULAR HEMOGLOBIN 32.3 pg (27.0-33.0); MEAN CORPUSCULAR HGB CONC 33.3 g/dl (32.0-36.5); MEAN CORPUSCULAR VOLUME 96.9 fl (80.0-96.0); MONO # 0.7 10^3/uL (0.0-0.8); MONO % 10.1 % (2.0-8.0); NEUTROPHILS # 3.5 10^3/uL (1.5-8.5); NEUTROPHILS % 54.1 % (36.0-66.0); PLATELET COUNT, AUTOMATED 232 10^3/uL (150-450); WHITE BLOOD COUNT 6.5 10^3/uL (4.0-10.0)
[2021-10-12 16:27] LABS: BILIRUBIN,TOTAL 0.7 MG/DL (0.2-1.0); CALCIUM LEVEL 9.6 MG/DL (8.8-10.2); CREATININE FOR GFR 1.25 MG/DL (0.70-1.30); GLOMERULAR FILTRATION RATE 58.9 (>35); POTASSIUM SERUM 4.3 MEQ/L (3.5-5.1)
[2021-10-12 16:28] LABS: ALBUMIN 4.1 GM/DL (3.2-5.2); CHOLESTEROL RISK RATIO 2.842 (<5); THYROID STIMULATING HORMONE 2.02 uIU/ML (0.358-3.740); TOTAL PROTEIN 6.8 GM/DL (6.4-8.2)
== END ==
LOC: M SFHCADAM 09:14
PROVIDERS: ATTEND Urology
DX: I10 Essential (primary) hypertension (principal); Z90.5 Acquired absence of kidney; Z85.528 Personal history of other malignant neoplasm of kidney; M19.011 Primary osteoarthritis, right shoulder; M16.0 Bilateral primary osteoarthritis of hip; E78.2 Mixed hyperlipidemia

== ENCOUNTER → 2021-10-19 | Outpatient (CLI) | payer MEDICARE, OTHER ==
[~2021-10-19] MED LIST changes: +GASTROGRAFIN SOLUTION 30ML (Q9963) As Ordered ONE; +ISOVUE-370 76% 100ML VIAL As Ordered ONE
== END ==
LOC: M RAD 09:46
PROVIDERS: ATTEND Urology
DX: C64.1 Malignant neoplasm of right kidney, except renal pelvis (principal); Z90.5 Acquired absence of kidney
CPT/HCPCS: 74177; Q9963; Q9967

== ENCOUNTER → 2022-02-15 | Outpatient (REF) | payer MEDICARE, OTHER ==
[~2022-02-15] MED LIST changes: -GASTROGRAFIN SOLUTION 30ML (Q9963) As Ordered ONE; -ISOVUE-370 76% 100ML VIAL As Ordered ONE
[2022-02-15 13:28] LABS: BASO % 0.6 % (0.0-1.0); EOS # 0.4 10^3/uL (0.0-0.5); EOS % 5.3 % (0.0-3.0); HEMATOCRIT 45.1 % (42.0-52.0); HEMOGLOBIN 14.6 g/dl (13.5-17.5); LYMPH # 2.7 10^3/uL (1.5-5.0); MEAN CORPUSCULAR HEMOGLOBIN 31.9 pg (27.0-33.0); MEAN CORPUSCULAR HGB CONC 32.4 g/dl (32.0-36.5); MEAN CORPUSCULAR VOLUME 98.7 fl (80.0-96.0); MONO # 0.7 10^3/uL (0.0-0.8); MONO % 10.9 % (2.0-8.0); NEUTROPHILS % 43.8 % (36.0-66.0); PLATELET COUNT, AUTOMATED 222 10^3/uL (150-450); RED BLOOD COUNT 4.57 10^6/uL (4.30-6.10); WHITE BLOOD COUNT 6.8 10^3/uL (4.0-10.0)
[2022-02-15 13:41] LABS: ERYTHROCYTE SEDIMENTATION RATE 4 mm/hr (0-20)
[2022-02-15 13:57] LABS: C REACTIVE PROTEIN QUANTITATIV < 0.40 MG/DL (<1.0)
[2022-02-15 13:58] LABS: ALKALINE PHOSPHATASE 55 U/L (46-116); ALT/SGPT 32 U/L (7.0-40); AST/SGOT 30 U/L (<34); BILIRUBIN,TOTAL 0.6 MG/DL (0.3-1.2); BLOOD UREA NITROGEN 28 MG/DL (9-23); CALCIUM LEVEL 9.3 MG/DL (8.3-10.6); CARBON DIOXIDE LEVEL 28 MMOL/L (20-31); CHLORIDE LEVEL 106 MMOL/L (98-107); CREATININE FOR GFR 1.28 MG/DL (0.70-1.30); GLOMERULAR FILTRATION RATE 57.3 (>35); GLUCOSE, FASTING 79 MG/DL (74-106); POTASSIUM SERUM 4.8 MMOL/L (3.5-5.1); SODIUM LEVEL 141 MMOL/L (136-145); TOTAL PROTEIN 6.5 G/DL (5.7-8.2)
[2022-02-15 13:59] LABS: RHEUMATOID FACTOR QUANT 30.9 IU/ML (<14)
[2022-02-15 14:00] LABS: URIC ACID 6.1 MG/DL (3.7-9.2)
[2022-02-16 23:07] LABS: ANA (HEP2) Negative (.); CYCLIC CITRULLINATED PEPTIDE 2 units (0-19)
== END ==
LOC: M SFHCADAM 08:10
PROVIDERS: ATTEND Physician Assistant
DX: R76.8 Other specified abnormal immunological findings in serum (principal); Z85.528 Personal history of other malignant neoplasm of kidney; Z90.5 Acquired absence of kidney

== ENCOUNTER → 2022-10-19 | Outpatient (REF) | payer MEDICARE, OTHER ==
[~2022-10-19] MED LIST changes: +POTA-298 PO; -POTA1TAB14 PO
[2022-10-19 13:15] LABS: BASO % 0.5 % (0.0-1.0); EOS # 0.4 10^3/uL (0.0-0.5); EOS % 4.8 % (0.0-3.0); HEMATOCRIT 47.8 % (42.0-52.0); HEMOGLOBIN 15.7 g/dl (13.5-17.5); LYMPH # 2.3 10^3/uL (1.5-5.0); MEAN CORPUSCULAR HEMOGLOBIN 31.9 pg (27.0-33.0); MEAN CORPUSCULAR HGB CONC 32.8 g/dl (32.0-36.5); MEAN CORPUSCULAR VOLUME 97.2 fl (80.0-96.0); MONO # 0.8 10^3/uL (0.0-0.8); MONO % 10.8 % (2.0-8.0); NEUTROPHILS # 3.8 10^3/uL (1.5-8.5); NEUTROPHILS % 52.5 % (36.0-66.0); PLATELET COUNT, AUTOMATED 248 10^3/uL (150-450); RED BLOOD COUNT 4.92 10^6/uL (4.30-6.10); WHITE BLOOD COUNT 7.3 10^3/uL (4.0-10.0)
[2022-10-19 13:45] LABS: CREATININE, URINE 95.6 MG/DL; MAU/CREAT RATIO 43.9 MCG/MG (0.0-30.0)
[2022-10-19 13:48] LABS: BILIRUBIN,TOTAL 0.9 MG/DL (0.3-1.2); CALCIUM LEVEL 9.5 MG/DL (8.3-10.6); CHOLESTEROL RISK RATIO 2.7 (<5); CREATININE FOR GFR 1.26 MG/DL (0.70-1.30); GLOMERULAR FILTRATION RATE 58.2 (>35); HDL CHOLESTEROL 55.1 MG/DL (>40); LDL CHOLESTEROL 67.9 MG/DL (<100); NON-HDL-C 93.9 MG/DL; POTASSIUM SERUM 4.4 MMOL/L (3.5-5.1); THYROID STIMULATING HORMONE 3.004 uIU/ML (0.55-4.78); TOTAL PROTEIN 6.8 G/DL (5.7-8.2)
[2022-10-19 13:50] LABS: FREE T4 1.23 NG/DL (0.89-1.76)
== END ==
LOC: M SFHCADAM 08:12
PROVIDERS: ATTEND Physician Assistant
DX: I12.9 Hypertensive chronic kidney disease with stage 1 through stage 4 chronic kidney disease, or unspecified chronic kidney disease (principal); E78.2 Mixed hyperlipidemia; E55.9 Vitamin D deficiency, unspecified; N18.31 Chronic kidney disease, stage 3a

== ENCOUNTER 2022-10-25 13:35 | Observation (INO) | payer MEDICARE, OTHER ==
[~2022-10-25] VITALS: Ht 172.7 cm; Wt 73.1 kg
[~2022-10-25 13:35] MED LIST changes: +ASPIRIN 325 MG TAB PO SCH
[2022-10-25] MEDS ORDERED: ROSU10TA6 PO (13:50)
[2022-10-25] MEDS ORDERED: B-12100010 PO (13:52)
[2022-10-25] MEDS ORDERED: VITAD400CA PO (13:52)
[2022-10-25] MEDS ORDERED: EQL50TAB2 PO (13:52)
[2022-10-25 14:14] LABS: BASO # 0.1 10^3/uL (0.0-0.2); BASO % 0.6 % (0.0-1.0); EOS # 0.3 10^3/uL (0.0-0.5); EOS % 3.4 % (0.0-3.0); HEMOGLOBIN 16.8 g/dl (13.5-17.5); LYMPH # 2.1 10^3/uL (1.5-5.0); LYMPH % 26.2 % (24.0-44.0); MEAN CORPUSCULAR HEMOGLOBIN 32.4 pg (27.0-33.0); MEAN CORPUSCULAR HGB CONC 34.3 g/dl (32.0-36.5); MEAN CORPUSCULAR VOLUME 94.6 fl (80.0-96.0); MONO # 0.7 10^3/uL (0.0-0.8); MONO % 8.1 % (2.0-8.0); NEUTROPHILS % 61.2 % (36.0-66.0); PLATELET COUNT, AUTOMATED 247 10^3/uL (150-450); RED BLOOD COUNT 5.18 10^6/uL (4.30-6.10); WHITE BLOOD COUNT 8.2 10^3/uL (4.0-10.0)
[2022-10-25 14:25] LABS: INR 0.99; PROTHROMBIN TIME 12.8 SECONDS (12.5-14.5)
[2022-10-25 14:26] LABS: PARTIAL THROMBOPLASTIN TIME 27.8 SECONDS (24.8-34.2)
[2022-10-25 14:37] LABS: CK-MB VALUE MASS 1.3 NG/ML (<3.6)
[2022-10-25 14:43] LABS: MB/CK RELATIVE INDEX 1.64 (< OR =4)
[2022-10-25] MEDS ORDERED: ISOVUE-370 76% 100ML VIAL As Ordered ONE (14:56)
[2022-10-25] MEDS ORDERED: MED REC IN PROGRESS XX SCH (16:40)
[2022-10-25] MEDS ORDERED: FELO10TA28 PO (16:52)
[2022-10-25] MEDS ORDERED: VITA100093 PO (16:52)
[2022-10-25] MEDS ORDERED: HOME MED LIST COMPLETE! XX SCH ×2 (16:55→17:10)
[2022-10-25] MEDS ORDERED: **hydrALAZINE HCL** 25 MG TAB PO PRN (18:15)
[2022-10-25] MEDS ORDERED: NS 1,000 ML IV SCH (18:25)
[2022-10-25 19:23] LABS: RSV AMPLIFICATION NEGATIVE (NEGATIVE)
[2022-10-25 19:38] LABS: HEMOGLOBIN A1c 5.1 % (4.0-6.0)
[2022-10-25 21:55] VITALS: BP 174/94; TEMP 97.5; O2SAT 96
[2022-10-25 22:00] VITALS: BP 174/94; TEMP 97.5; O2SAT 96
[2022-10-25] MEDS ORDERED: ACETAMINOPHEN 500 MG TAB PO ONE (22:30)
[2022-10-25 23:20] VITALS: BP 137/74; TEMP 97.1; O2SAT 96
[2022-10-26] VITALS (7 sets, daily range): BP systolic 130–178; BP diastolic 78–100; TEMP 97.4–97.8; O2SAT 96–98
[2022-10-26 06:49] LABS: ALBUMIN 3.4 G/DL (3.2-5.2); ALKALINE PHOSPHATASE 51 U/L (46-116); ALT/SGPT 19 U/L (7.0-40); AST/SGOT 12 U/L (<34); BILIRUBIN,TOTAL 0.6 MG/DL (0.3-1.2); BLOOD UREA NITROGEN 22 MG/DL (9-23); CALCIUM LEVEL 8.3 MG/DL (8.3-10.6); CARBON DIOXIDE LEVEL 25 MMOL/L (20-31); CHLORIDE LEVEL 109 MMOL/L (98-107); CHOLESTEROL LEVEL 145 MG/DL (<200); CHOLESTEROL RISK RATIO 3.89 (<5); CREATININE FOR GFR 1.13 MG/DL (0.70-1.30); GLOMERULAR FILTRATION RATE > 60.0 (>35); GLUCOSE, FASTING 96 MG/DL (74-106); HDL CHOLESTEROL 37.2 MG/DL (>40); LDL CHOLESTEROL 79.8 MG/DL (<100); NON-HDL-C 107.8 MG/DL; POTASSIUM SERUM 3.9 MMOL/L (3.5-5.1); SODIUM LEVEL 142 MMOL/L (136-145); TOTAL PROTEIN 5.9 G/DL (5.7-8.2); TRIGLYCERIDES LEVEL 140 MG/DL (<150)
[2022-10-26] MEDS ORDERED: CYANOCOBALAMIN 500 MCG TAB PO SCH (09:00)
[2022-10-26] MEDS ORDERED: ENOXAPARIN 40MG/0.4ML SYRINGE (J1650 PER 10MG) SC SCH (09:00)
[2022-10-26] MEDS: ASPIRIN 81MG ENTERIC TABLET PO SCH ×2 (09:00→10:16)
[2022-10-26] MEDS: ROSUVASTATIN 10 MG TAB (CRESTOR) PO SCH ×2 (09:00→10:16)
[2022-10-26] MEDS ORDERED: VITAMIN D 1,000 INTERNATIONAL UNITS TABLET PO SCH (09:00)
[2022-10-26] MEDS ORDERED: LOSARTAN 25 MG TAB PO SCH (11:10)
[2022-10-26] MEDS ORDERED: PERCOCET 5MG/325MG TAB PO PRN (12:55)
[2022-10-26] MEDS ORDERED: PERCOCET PO (13:11)
[2022-10-26] MEDS ORDERED: LOSA-527 PO (13:11)
[2022-10-26] MEDS ORDERED: ASPI81TAEC PO (13:11)
== END 2022-10-26 15:59 | disposition home or self-care (01) ==
LOC: M ED 13:35 → M ED INP 13:36 → ENRESERV 19:47 → M PCU 21:56
PROVIDERS: ADMIT Internal Medicine; ATTEND Internal Medicine
DX: R20.2 Paresthesia of skin (principal); R20.0 Anesthesia of skin; M47.812 Spondylosis without myelopathy or radiculopathy, cervical region; R29.6 Repeated falls; W01.198A Fall on same level from slipping, tripping and stumbling with subsequent striking against other object, initial encounter; Y92.096 Garden or yard of other non-institutional residence as the place of occurrence of the external cause; M25.511 Pain in right shoulder; S00.81XA Abrasion of other part of head, initial encounter; M19.90 Unspecified osteoarthritis, unspecified site; I12.9 Hypertensive chronic kidney disease with stage 1 through stage 4 chronic kidney disease, or unspecified chronic kidney disease; N18.30 Chronic kidney disease, stage 3 unspecified; E78.5 Hyperlipidemia, unspecified; E55.9 Vitamin D deficiency, unspecified; E53.8 Deficiency of other specified B group vitamins; I67.2 Cerebral atherosclerosis; M25.512 Pain in left shoulder; Z96.612 Presence of left artificial shoulder joint; M46.02 Spinal enthesopathy, cervical region; M50.20 Other cervical disc displacement, unspecified cervical region; Z85.528 Personal history of other malignant neoplasm of kidney; Z90.5 Acquired absence of kidney; I67.82 Cerebral ischemia; G31.1 Senile degeneration of brain, not elsewhere classified; G93.89 Other specified disorders of brain; Z79.899 Other long term (current) drug therapy; Z79.82 Long term (current) use of aspirin; Z80.8 Family history of malignant neoplasm of other organs or systems; Z82.3 Family history of stroke
CPT/HCPCS: 36415; 70450; 70496; 70498; 70551; 71045; 73030; 80047; 80053; 80061; 82550; 82553; 83036; 84484; 85025; 85610; 85730; 86850; 86900; 86901; 87631; 93005; 93041; 93306; 94760; 96360; 96361; 99285; G0378; G0463; Q9967

== ENCOUNTER → 2022-11-01 | Outpatient (CLI) | payer MEDICARE, OTHER ==
[~2022-11-01] MED LIST changes: +ASPI81TAEC PO; -ASPIRIN 325 MG TAB PO SCH; +B-12100010 PO; +EQL50TAB2 PO; +FELO10TA28 PO; +LOSA-527 PO; +PERCOCET PO; +ROSU10TA6 PO; +VITA100093 PO; +VITAD400CA PO
== END ==
LOC: M RAD 14:00
PROVIDERS: ATTEND Physician Assistant
DX: R09.89 Other specified symptoms and signs involving the circulatory and respiratory systems (principal)

== ENCOUNTER → 2022-11-17 | Outpatient (CLI) | payer MEDICARE, OTHER ==
[~2022-11-17] MED LIST changes: +ISOVUE-370 76% 100ML VIAL As Ordered ONE
== END ==
LOC: M RAD 08:53
PROVIDERS: ATTEND Urology
DX: Z85.528 Personal history of other malignant neoplasm of kidney (principal); Z90.5 Acquired absence of kidney
CPT/HCPCS: 74160; Q9967

== ENCOUNTER → 2022-11-30 | Outpatient (REF) | payer MEDICARE, OTHER ==
[~2022-11-30] MED LIST changes: -ISOVUE-370 76% 100ML VIAL As Ordered ONE
[2022-11-30 17:48] LABS: BLOOD UREA NITROGEN 26 MG/DL (9-23); CALCIUM LEVEL 9.6 MG/DL (8.3-10.6); CARBON DIOXIDE LEVEL 28 MMOL/L (20-31); CHLORIDE LEVEL 105 MMOL/L (98-107); CREATININE FOR GFR 1.15 MG/DL (0.70-1.30); GLOMERULAR FILTRATION RATE > 60.0 (>35); GLUCOSE, FASTING 90 MG/DL (74-106); POTASSIUM SERUM 4.8 MMOL/L (3.5-5.1); SODIUM LEVEL 139 MMOL/L (136-145)
== END ==
LOC: M SFHCADAM 12:05
PROVIDERS: ATTEND Physician Assistant
DX: I35.8 Other nonrheumatic aortic valve disorders (principal); I12.9 Hypertensive chronic kidney disease with stage 1 through stage 4 chronic kidney disease, or unspecified chronic kidney disease

== ENCOUNTER → 2023-03-28 | Outpatient (REF) | payer MEDICARE, OTHER ==
[2023-03-28 15:33] LABS: BASO # 0.1 10^3/uL (0.0-0.2); BASO % 0.9 % (0.0-1.0); EOS # 0.5 10^3/uL (0.0-0.5); EOS % 7.3 % (0.0-3.0); HEMATOCRIT 46.2 % (42.0-52.0); HEMOGLOBIN 15.3 g/dl (13.5-17.5); LYMPH # 2.3 10^3/uL (1.5-5.0); MEAN CORPUSCULAR HEMOGLOBIN 32.3 pg (27.0-33.0); MEAN CORPUSCULAR HGB CONC 33.1 g/dl (32.0-36.5); MEAN CORPUSCULAR VOLUME 97.5 fl (80.0-96.0); MONO # 0.7 10^3/uL (0.0-0.8); MONO % 10.4 % (2.0-8.0); NEUTROPHILS # 2.9 10^3/uL (1.5-8.5); NEUTROPHILS % 45.1 % (36.0-66.0); PLATELET COUNT, AUTOMATED 224 10^3/uL (150-450); RED BLOOD COUNT 4.74 10^6/uL (4.30-6.10); WHITE BLOOD COUNT 6.5 10^3/uL (4.0-10.0)
[2023-03-28 15:39] LABS: ALBUMIN 3.8 G/DL (3.2-5.2)
[2023-03-28 15:48] LABS: FERRITIN 370.8 NG/ML (10.5-307.3); PERCENT SATURATION 50.6 % (19.7-50.0)
== END ==
LOC: M LABDRWAD 13:42
PROVIDERS: ATTEND Orthopaedic Surgery
DX: M25.559 Pain in unspecified hip (principal); M16.11 Unilateral primary osteoarthritis, right hip

== ENCOUNTER → 2023-04-11 | Outpatient (CLI) | payer MEDICARE, OTHER ==
[2023-04-11 13:58] LABS: CALCIUM LEVEL 9.7 MG/DL (8.3-10.6); CREATININE FOR GFR 1.31 MG/DL (0.70-1.30); GLOMERULAR FILTRATION RATE 55.6 (>35); POTASSIUM SERUM 5.3 MMOL/L (3.5-5.1)
[2023-04-11 14:53] LABS: PARTIAL THROMBOPLASTIN TIME 28.8 SECONDS (24.8-34.2); PROTHROMBIN TIME 12.9 SECONDS (12.5-14.5)
== END ==
LOC: M LAB 12:00
PROVIDERS: ATTEND Orthopaedic Surgery
DX: Z01.818 Encounter for other preprocedural examination (principal); Z79.01 Long term (current) use of anticoagulants

== ENCOUNTER → 2023-06-06 | Outpatient (REF) | payer MEDICARE, OTHER ==
[2023-06-06 14:12] LABS: ALBUMIN 3.7 G/DL (3.2-5.2); ALKALINE PHOSPHATASE 69 U/L (46-116); ALT/SGPT 21 U/L (7.0-40); AST/SGOT 16 U/L (<34); BILIRUBIN,TOTAL 0.5 MG/DL (0.3-1.2); BLOOD UREA NITROGEN 26 MG/DL (9-23); CALCIUM LEVEL 9.7 MG/DL (8.3-10.6); CARBON DIOXIDE LEVEL 29 MMOL/L (20-31); CHLORIDE LEVEL 109 MMOL/L (98-107); CREATININE FOR GFR 1.15 MG/DL (0.70-1.30); GLOMERULAR FILTRATION RATE > 60.0 (>35); GLUCOSE, FASTING 106 MG/DL (74-106); POTASSIUM SERUM 4.9 MMOL/L (3.5-5.1); SODIUM LEVEL 142 MMOL/L (136-145); TOTAL PROTEIN 6.6 G/DL (5.7-8.2)
== END ==
LOC: M SFHCADAM 09:34
PROVIDERS: ATTEND Physician Assistant
DX: I10 Essential (primary) hypertension (principal); E78.2 Mixed hyperlipidemia

== ENCOUNTER → 2023-11-22 | Outpatient (CLI) | payer MEDICARE, OTHER ==
[~2023-11-22] MED LIST changes: -ROSU10TA6 PO; +ROSU10TA61 PO
== END ==
LOC: M WUC 14:25
PROVIDERS: ATTEND Internal Medicine
DX: R05.9 Cough, unspecified (principal)

== ENCOUNTER → 2023-11-29 | Outpatient (CLI) | payer MEDICARE, OTHER ==
[~2023-11-29] MED LIST changes: +ISOVUE-370 76% 100ML VIAL As Ordered ONE
== END ==
LOC: M RAD 10:44
PROVIDERS: ATTEND Urology
DX: C64.1 Malignant neoplasm of right kidney, except renal pelvis (principal); Z90.5 Acquired absence of kidney
CPT/HCPCS: 74170; Q9967

== ENCOUNTER → 2023-12-20 | Outpatient (CLI) | payer MEDICARE, OTHER ==
[~2023-12-20] MED LIST changes: -ISOVUE-370 76% 100ML VIAL As Ordered ONE
== END ==
LOC: M RAD 15:29
PROVIDERS: ATTEND Internal Medicine
DX: I65.22 Occlusion and stenosis of left carotid artery (principal)

== ENCOUNTER → 2024-06-05 | Outpatient (CLI) | payer MEDICARE, OTHER | LOC: M WUC 11:47 | PROVIDERS: ATTEND Internal Medicine | DX: Z96.612 Presence of left artificial shoulder joint (principal) ==

== ENCOUNTER → 2025-02-05 | Outpatient (CLI) | payer MEDICARE, OTHER ==
[~2025-02-05] MED LIST changes: -ACE65ERTAB PO; +ACET-1387 PO; -EQL50TAB2 PO; -ROSU10TA61 PO; +ROSU10TA90 PO; +VITA1TAB82 PO
== END ==
LOC: M SOG 07:38
PROVIDERS: ATTEND Physician Assistant
DX: M25.512 Pain in left shoulder (principal)